=== PATIENT | female | born 1995 | race Caucasian/White ===

== ENCOUNTER 2016-05-03 01:15 | Emergency (ER) | payer MEDICAID ==
[~2016-05-03] VITALS: Ht 149.9 cm; Wt 47.9 kg
[~2016-05-03 01:15] MED LIST: ESCI5TAB7 PO; LEVO25TA4 PO; MELA1TAB19 SL; magnesium PO
[2016-05-03 02:01] LABS: HEMOGLOBIN 15.9 g/dL (11.7-16.4)
[2016-05-03 02:38] VITALS: BP 109/73
== END 2016-05-03 02:41 | disposition home or self-care (01) ==
LOC: ED 02:30
DX: J95.831 Postprocedural hemorrhage of a respiratory system organ or structure following other procedure (principal); R04.1 Hemorrhage from throat; F41.1 Generalized anxiety disorder; E03.9 Hypothyroidism, unspecified; J45.909 Unspecified asthma, uncomplicated; G43.909 Migraine, unspecified, not intractable, without status migrainosus; Z90.89 Acquired absence of other organs; Y83.8 Other surgical procedures as the cause of abnormal reaction of the patient, or of later complication, without mention of misadventure at the time of the procedure; Y93.89 Activity, other specified; Y99.8 Other external cause status; Y92.89 Other specified places as the place of occurrence of the external cause
CPT/HCPCS: 36415; 85025; 99283

== ENCOUNTER 2017-01-23 08:51 | Emergency (ER) | payer MEDICAID, OTHER ==
[~2017-01-23] VITALS: Ht 152.4 cm; Wt 49.1 kg
[2017-01-23 09:01] VITALS: BP 139/85
== END 2017-01-23 10:25 | disposition home or self-care (01) ==
LOC: ED 10:22
DX: J20.9 Acute bronchitis, unspecified (principal); G43.909 Migraine, unspecified, not intractable, without status migrainosus; E03.9 Hypothyroidism, unspecified; J45.909 Unspecified asthma, uncomplicated
CPT/HCPCS: 71020; 99284